=== PATIENT | male | born 1990 | race Caucasian/White ===

== ENCOUNTER 2024-12-26 18:20 | Emergency (ER) | payer BC ==
[2024-12-26] MEDS: Tetracaine HCl/PF 0.5% 4 ML Bottle ONE (18:34)
[2024-12-26] MEDS: Take Home: Polymyxin B Sulf/Trimethoprim Ophth Soln 10 ML, 1 Bottle Pack EYELF ONE (19:00)
== END 2024-12-26 19:00 | disposition home or self-care (01) ==
LOC: LL.ED 18:20
DX: S05.02XA Injury of conjunctiva and corneal abrasion without foreign body, left eye, initial encounter (principal); W45.8XXA Other foreign body or object entering through skin, initial encounter
CPT/HCPCS: 99283; A9270-GY; J3490